=== PATIENT | female | born 1990 ===

== ENCOUNTER 2021-06-03 10:09 | Emergency (ER) | payer SELFPAY ==
[2021-06-03 10:29] VITALS: BP 115/77
--- NOTE | 2021-06-03 10:58 | Emergency Department Report ---
Chief Complaint: Medical Clearance Stated Complaint: HOT FLASHES Time Seen by Provider: 06/03/21 10:53 - HPI History of Present Illness: 31-year-old female presents to the ER today with complaints of "I am having hot flashes for the past 3 months. Patient states that she thought it was related to Covid and took a Covid test 4 weeks ago and it was negative. She states that she will be doing fine and then all of a sudden she will just get hot for no reason. She denies any pain. She denies any nausea, vomiting, fever, chills, URI symptoms or any other symptoms at this time. She states that she is on Depo-Provera, but she has been on that for a while. She states that she currently does not have insurance and has not been able to follow-up with either primary care doctor or [facility] about her hot flashes. - Exam Vital Signs: Vital Signs 06/03/21 10:27 Temperature 98.3 F Pulse Rate 71 Respiratory 18 Rate Blood Pressure 115/77 [Right] O2 Sat by Pulse 99 Oximetry MSE screening note: Focused history and physical exam performed. Due to findings the following was ordered: ED Medical Decision Making - Medical Decision Making 31-year-old female presents to the ER today with complaints of "I am having hot flashes for the past 3 months. Patient states that she thought it was related to Covid and took a Covid test 4 weeks ago and it was negative. She states that she will be doing fine and then all of a sudden she will just get hot for no reason. She denies any pain. She denies any nausea, vomiting, fever, chills, URI symptoms or any other symptoms at this time. She states that she is on Depo-Provera, but she has been on that for a while. She states that she currently does not have insurance and has not been able to follow-up with either primary care doctor or [facility] about her hot flashes. 1102: Patient is well-appearing, nontoxic and not in any acute distress. She is neurologically intact with a normal gait. Chest clear to auscultation. Abdomen soft nontender. She does not appear dehydrated. Her vital signs are stable. Informed patient that she will need to follow-up with [facility] and her primary care doctor to further evaluate why she is having "hot flashes". At this time, managed based on patient history, physical exam and current condition patient does not have a emergent medical condition to require any work-up at this time. Patient will be given referral to local [facility] and primary care doctor for further evaluation. Patient expressed understanding and agree with plan. Patient was stable at time of discharge. ED Disposition for MSE Clinical Impression: Encounter for medical screening examination Disposition: 01 HOME / SELF CARE / HOMELESS Is pt being admited?: No Does the pt Need Aspirin: No Condition: Stable Instructions: Medical Screening Exam Additional Instructions: Recommend a follow-up with local [facility] or primary care doctor for further evaluation of your "hot flashes". Return to the ER if your symptoms worsens or changes in any way. Referrals: [facility] [Provider Group] - 3-5 Days [facility] [Provider Group] - 3-5 Days [facility] [Provider Group] - 3-5 Days Time of Disposition: 10:58 ED Review of Systems ROS: Stated complaint: HOT FLASHES Other details as noted in HPI Comment: All other systems reviewed and negative Constitutional: other ("hot flashes") Eyes: denies: eye pain, eye discharge, vision change ENT: denies: ear pain, throat pain Respiratory: denies: cough, shortness of breath, wheezing Cardiovascular: denies: chest pain, palpitations Endocrine: no symptoms reported Gastrointestinal: denies: abdominal pain, nausea, diarrhea Genitourinary: denies: urgency, dysuria, frequency, hematuria, discharge, abnormal menses, dyspareunia Musculoskeletal: denies: back pain, joint swelling, arthralgia, myalgia Skin: denies: rash, lesions, change in color, change in hair/nails, pruritus Neurological: denies: headache, weakness, numbness, paresthesias, confusion, abnormal gait, vertigo Psychiatric: denies: anxiety, depression, auditory hallucinations, visual hallucinations, homicidal thoughts, suicidal thoughts Hematological/Lymphatic: denies: easy bleeding, easy bruising ED Physical Exam - General General appearance: alert, in no apparent distress - Head Head exam: Present: atraumatic, normocephalic, normal inspection - Eye Eye exam: Present: normal appearance, PERRL, EOMI Pupils: Present: normal accommodation - ENT ENT exam: Present: normal exam, mucous membranes moist - Neck Neck exam: Present: normal inspection, full ROM. Absent: meningismus - Respiratory Respiratory exam: Present: normal lung sounds bilaterally. Absent: respiratory distress, wheezes, rales - Cardiovascular Cardiovascular Exam: Present: regular rate, normal rhythm, normal heart sounds - GI/Abdominal GI/Abdominal exam: Present: soft. Absent: distended, tenderness, guarding, rebound - Extremities Exam Extremities exam: Present: normal inspection, full ROM - Neurological Exam Neurological exam: Present: alert, oriented X3, CN II-XII intact, normal gait - Psychiatric Psychiatric exam: Present: normal affect, normal mood - Skin Skin exam: Present: intact
== END 2021-06-03 11:15 | disposition home or self-care (01) ==
LOC: ED 10:09
DX: Z00.00 Encounter for general adult medical examination without abnormal findings (principal); Z53.21 Procedure and treatment not carried out due to patient leaving prior to being seen by health care provider
CPT/HCPCS: 99281